=== PATIENT | female | born 2000 | race Caucasian/White ===

== ENCOUNTER 2019-12-15 16:20 | Emergency (ER) | payer OTHER ==
[~2019-12-15] VITALS: Ht 167.6 cm; Wt 113.4 kg
[2019-12-15] MEDS ORDERED: IBUP400 PO (17:59)
== END 2019-12-15 18:15 | disposition home or self-care (01) ==
LOC: ER 16:20
DX: S20.211A Contusion of right front wall of thorax, initial encounter (principal); V59.9XXA Occupant (driver) (passenger) of pick-up truck or van injured in unspecified traffic accident, initial encounter
CPT/HCPCS: 99284; A9270-GY